=== PATIENT | male | born 1985 | race Hispanic/Latino ===

== ENCOUNTER → 2020-10-20 | Outpatient (CLI) | payer OTHER | END | disposition home or self-care (01) | LOC: SLP 10-15 11:08 | PROVIDERS: ATTEND Family Medicine | DX: G47.33 Obstructive sleep apnea (adult) (pediatric) (principal); R06.83 Snoring | CPT/HCPCS: 95810 ==

== ENCOUNTER → 2020-10-27 | Outpatient (CLI) | payer OTHER | END | disposition home or self-care (01) | LOC: SLP 20:26 | PROVIDERS: ATTEND Family Medicine | DX: R06.83 Snoring (principal) | CPT/HCPCS: 95811 ==

== ENCOUNTER 2022-03-04 17:25 | Emergency (ER) | payer OTHER ==
[~2022-03-04] VITALS: Ht 180.3 cm; Wt 136.1 kg
[2022-03-04] MEDS ORDERED: CYCLOBENZAPRINE HCL 10 MG TABLET PO ONE (20:00)
[2022-03-04] MEDS ORDERED: IBUPROFEN 600 MG TABLET PO ONE (20:00)
[2022-03-04] MEDS ORDERED: NAPR500T6 PO (21:11)
[2022-03-04 21:25] VITALS: BP 141/90
== END 2022-03-04 21:30 | disposition home or self-care (01) ==
LOC: EDH 17:28
DX: M54.2 Cervicalgia (principal); M54.50 Low back pain, unspecified; V49.49XA Driver injured in collision with other motor vehicles in traffic accident, initial encounter; Y93.89 Activity, other specified; Y92.413 State road as the place of occurrence of the external cause; Y99.8 Other external cause status
CPT/HCPCS: 72125; 72131

== ENCOUNTER 2025-02-22 18:30 | Emergency (ER) | payer OTHER, BC ==
[~2025-02-22] VITALS: Ht 180.3 cm; Wt 127.0 kg
[~2025-02-22 18:30] MED LIST: NAPR-1506 PO
[2025-02-22] MEDS: CYCLOBENZAPRINE HCL 10 MG TABLET PO ONE (18:50)
[2025-02-22] MEDS: ketOROlac 30MG VIAL (30MG/ML) IM ONE (18:50)
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
--- NOTE | 2025-02-22 19:42 | HMCIMG ---
LUMBAR SPINE 2-3VWS HISTORY: Back pain COMPARISON: None FINDINGS: 3 images of the lumbar spine were obtained. There is straightening of normal lordotic curvature which may be related to muscle spasm or positioning. No loss of vertebral height is seen. No fracture or dislocation is seen. Minimal degenerative changes are seen. IMPRESSION: 1. No fracture is seen.
[2025-02-22 20:01] VITALS: BP 133/87; PULSE 85; RESP 18; TEMP 98.6; O2SAT 99
[2025-02-22] MEDS ORDERED: CYCL10TA16 PO (20:02)
[2025-02-22] MEDS ORDERED: IBUP-2070 PO (20:02)
== END 2025-02-22 20:02 | disposition home or self-care (01) ==
LOC: EDH 18:30
DX: M54.50 Low back pain, unspecified (principal); I10 Essential (primary) hypertension; V89.2XXA Person injured in unspecified motor-vehicle accident, traffic, initial encounter; Y93.89 Activity, other specified; Y92.89 Other specified places as the place of occurrence of the external cause; Y99.8 Other external cause status
CPT/HCPCS: 99283; 72100; 96372; J1885